=== PATIENT | male | born 1965 | race Caucasian/White ===

== ENCOUNTER 2019-06-13 20:52 | Inpatient (IN) ==
[2019-06-13] MEDS ORDERED: G.I. COCKTAIL PO ONE (22:35)
--- NOTE | 2019-06-14 00:47 | PROVIDER DOCUMENTATION ---
This chart was entered by Bridgette Mohan Scribe, acting as scribe for Judy Gillette MD. HPI-Abdominal Pain/GI Problem - General Source: patient - History of Present Illness-ABD Nature of Presenting Problems: 54 YOWM C/O EPIGASTRIC ABD PAIN FOR 1 YEAR BUT BECOMING WORSE, ACHING AND MORE CONSTANT SINCE TUESDAY. PT HAS HAD NAUSEA BUT NO VOMITING OR DIARRHEA. PT HAS REG BM'S EVERY 3 DAYS. NO MEDICAL HX, NO RX, NO PCP AND NO ALLERGIES. 03/01. PT HAS HAD POOR APPETITE. 1PPD, DENIES ALCOHOL BUT +METH USE. Abdominal Pain Onset Location: reports: epigastric Pain Radiation: reports: no radiation Quality of Pain: reports: aching Severity in ED: reports: mild Onset/Duration: reports: 3 days ago (WORSENING SINCE TUESDAY), other (1 YEAR) Timing: reports: still present, constant Activities at Onset: reports: none Modifying Factors: improves with: nothing Associated Symptoms: reports: denies symptoms Last BM: unsure Dark Stools Present?: reports: none noticed Rectal Bleeding: reports: none Rectal Pain: reports: none Emesis Description: reports: none <Judy Gillette - Last Filed: 06/14/19 00:48> <Pauline Delarosa - Last Filed: 06/14/19 04:43> - General Chief Complaint: Abdominal Pain Stated Complaint: ABD PAIN Time Seen by Provider: 06/13/19 21:30 Allergies/Adverse Reactions: Patient Allergies Allergy/AdvReac Type Severity Reaction Status Date / Time No Known Allergies Allergy Verified 06/14/19 00:41 Home Medications: Home Medication List Medication Instructions Recorded Confirmed Last Taken Type NK [No Home Medications] 06/14/19 06/14/19 Unknown History Review of Systems - Adult - REVIEW OF SYSTEMS - ADULT Constitutional: reports: no symptoms reported. denies: fever, fatique, night sweats Eyes: reports: no symptoms reported Ears, Nose, Mouth & Throat: reports: no symptoms reported Cardiovascular: reports: no symptoms reported Respiratory: reports: no symptoms reported Gastrointestinal: reports: see HPI, abdominal pain, nausea, poor appetite. denies: hematemesis, diarrhea, rectal bleeding, vomiting Genitourinary: reports: no symptoms reported Musculoskeletal: reports: no symptoms reported Integumentary: reports: no symptoms reported Neurological: reports: no symptoms reported Psychiatric: reports: no symptoms reported Endocrine: reports: no symptoms reported Hematologic/Lymphatic: reports: no symptoms reported Allergic/Immunologic: reports: no symptoms reported All Other Systems: Reviewed and Negative <MarimarDanny ottonora TemoSerina - Last Filed: 06/14/19 00:48> Past History - Adult - PAST MEDICAL HISTORY-ADULT Review of Records: reports: Nursing Assessment Review, Medications Reviewed, Social history reviewed & non-contributory. Major Childhood Illnesses: reports: denies history Cardiovascular: reports: denies history Respiratory: reports: denies history Gastrointestinal: reports: denies history Obstetrical/Gynecological: reports: denies history Genitourinary: reports: denies history Musculoskeletal: reports: denies history Neurological: reports: denies history Endocrine/Immune: reports: denies history Other Conditions: reports: denies history - PRIOR SURGERIES/PROCEDURES Surgical/Procedure History: reports: orthopedic (extremity) - IMMUNIZATION STATUS Childhood Immunizations: See Nurse Assessment Flu Vaccine: See Nurse Assessment - FAMILY HISTORY Family History: reviewed, not pertinent - SOCIAL HISTORY Smoking: cigarettes, greater than 1 pack/day Provider spent 3-5 mins advising pt. on dangers of tobacco.: Discussed manners to quit use, and f/u contacts for add'l counseling. Substance Use: denies (ALCOHOL USE), other (METH) <Danny Gillettenora TemoSerina - Last Filed: 06/14/19 00:48> Physical Exam-General - PHYSICAL EXAM-ADULT Initial Vital Signs Reviewed: Yes - CONSTITUTIONAL General Appearance: alert, no apparent distress. negative: lethargic, slow to respond, obtunded - EYES Eyes: PERRL/EOMI, pink conjunctivae - HEAD, EARS, NOSE, MOUTH & THROAT HENMT: normocephalic/atraumatic, moist mucous membranes, normal ENT inspection - NECK Neck: non-tender, full range of motion, supple, normal inspection - RESPIRATORY Respiratory: chest non-tender, lungs clear, normal breath sounds - CARDIOVASCULAR Cardiovascular: normal peripheral pulses, regular rate, rhythm - GASTROINTESTINAL (ABDOMEN) Abdominal Exam: normal bowel sounds, soft, no organomegaly, no pulsatile mass, tenderness (EPIGASTRUM TO PALP). negative: non tender, guarding, rigid, rebound - MUSCULOSKELETAL Back Exam: normal inspection Extremity: normal range of motion, non-tender, normal gait, normal inspection Peripheral Pulses: radial (L): 2+ - SKIN Integumentary: normal color, normal turgor, warm/dry, abrasion(s) (ON FACE VARIOUS SPOTS) - NEUROLOGIC Neurologic: grossly normal, no motor/sensory deficits - PSYCHIATRIC Psych/Mental Status: normal mood/affect, normal thought content, normal thought process, oriented x 3 <Judy Gillette - Last Filed: 06/14/19 00:48> Progress - PLAN OF CARE/RESULTS Progress/Plan/Lab Results: Vital Signs - 8 hr 06/13/19 20:56 Temperature 97.5 F L Pulse Rate 81 Respiratory Rate 16 Blood Pressure 110/78 O2 Sat by Pulse Oximetry 95 - CHANGE OF SHIFT REPORT (ED Provider) 1 Report Given and Care Transferred to:: Dr. Delarosa at the end of shift Time of Transfer: 00:48 Items Pending: Labs <Judy Gillette - Last Filed: 06/14/19 00:48> - PLAN OF CARE/RESULTS Progress/Plan/Lab Results: Vital Signs - 8 hr 06/13/19 20:56 Temperature 97.5 F L Pulse Rate 81 Respiratory Rate 16 Blood Pressure 110/78 O2 Sat by Pulse Oximetry 95 Laboratory Results - last 24 hr 06/14/19 06/14/19 06/14/19 00:55 00:55 00:55 WBC 9.49 RBC 5.36 Hgb 15.4 Hct 48.6 MCV 90.7 MCH 28.7 MCHC 31.7 L RDW Std Deviation 14.6 H Plt Count 288 MPV 10.9 H Immature Gran % (Auto) 0.2 Neut % (Auto) 76.6 H Lymph % (Auto) 13.4 L Taliaferro % (Auto) 7.9 Eos % (Auto) 1.7 Baso % (Auto) 0.2 Immature Gran # (Auto) 0.02 Neut # (Auto) 7.27 H Lymph # (Auto) 1.27 Taliaferro # (Auto) 0.75 H Eos # (Auto) 0.16 Baso # (Auto) 0.02 Sodium 140 Potassium 4.3 Chloride 101 Carbon Dioxide 26 Anion Gap 13 BUN 15 Creatinine 0.8 Estimated GFR/1.73 m2 > 60 BUN/Creatinine Ratio 19 Glucose 129 H Calculated Osmolality 282 Calcium 9.8 Total Bilirubin 1.22 H AST 250 H ALT 636 H Alkaline Phosphatase 324 H Creatine Kinase 68 Troponin T High Sens Total Protein 7.3 Albumin 4.3 Globulin 3.0 Albumin/Globulin Ratio 1.4 Amylase 603 H Lipase 1423 H Urine Source CLEAN CATCH Urine Color YELLOW Urine Turbidity CLEAR Urine pH 6.0 Ur Specific [place] 1.035 Urine Protein 30 A Ur Glucose (Stick) NEGATIVE Ur Ketones (Stick) NEGATIVE Urine Blood NEGATIVE Urine Nitrite NEGATIVE Urine Bilirubin SMALL A Urobilinogen Dipstick 4 A Urine Leukocytes NEGATIVE Urine WBC (Auto) <10 Urine RBC (Auto) 10-20 A U Epithel Cells (Auto) <10 Urine Bacteria (Auto) NEGATIVE Urine Crystals NONE SEEN Small Round Cells NONE SEEN Urine Casts NONE SEEN Urine Yeast-like Cells NONE SEEN Urine Opiates Screen Ur Oxycodone Screen Ur Methadone, Qual Ur Barbiturates Screen Ur Phencyclidine Scrn Ur Amphetamines Screen U Benzodiazepines Scrn Urine Cocaine Screen U Cannabinoids Screen 06/14/19 06/14/19 00:55 00:55 WBC RBC Hgb Hct MCV MCH MCHC RDW Std Deviation Plt Count MPV Immature Gran % (Auto) Neut % (Auto) Lymph % (Auto) Taliaferro % (Auto) Eos % (Auto) Baso % (Auto) Immature Gran # (Auto) Neut # (Auto) Lymph # (Auto) Taliaferro # (Auto) Eos # (Auto) Baso # (Auto) Sodium Potassium Chloride Carbon Dioxide Anion Gap BUN Creatinine Estimated GFR/1.73 m2 BUN/Creatinine Ratio Glucose Calculated Osmolality Calcium Total Bilirubin AST ALT Alkaline Phosphatase Creatine Kinase Troponin T High Sens 10 Total Protein Albumin Globulin Albumin/Globulin Ratio Amylase Lipase Urine Source Urine Color Urine Turbidity Urine pH Ur Specific [place] Urine Protein Ur Glucose (Stick) Ur Ketones (Stick) Urine Blood Urine Nitrite Urine Bilirubin Urobilinogen Dipstick Urine Leukocytes Urine WBC (Auto) Urine RBC (Auto) U Epithel Cells (Auto) Urine Bacteria (Auto) Urine Crystals Small Round Cells Urine Casts Urine Yeast-like Cells Urine Opiates Screen NONE DETECTED Ur Oxycodone Screen NONE DETECTED Ur Methadone, Qual NONE DETECTED Ur Barbiturates Screen NONE DETECTED Ur Phencyclidine Scrn NONE DETECTED Ur Amphetamines Screen PRESUMPTIVE POSITIVE A U Benzodiazepines Scrn NONE DETECTED Urine Cocaine Screen NONE DETECTED U Cannabinoids Screen PRESUMPTIVE POSITIVE A Orders Category Date Time Status Saline Loc DIRECTED Care 06/13/19 22:34 Active NPO Diet 06/13/19 22:[address] ABD/PELVIS W/IV CONT ONLY [CT] Stat Exams 06/14/19 02:43 Ordered AMYLASE [CHEM] Stat Lab 06/14/19 00:55 Completed CBC WITH ELECTRONIC DIFF [HEME] Stat Lab 06/14/19 00:55 Completed CK PROFILE [SP CHEM] Stat Lab 06/14/19 00:55 Completed COMPREHENSIVE METABOLIC PANEL [CHEM] Stat Lab 06/14/19 00:55 Completed LIPASE [CHEM] Stat Lab 06/14/19 00:55 Completed TROPONIN T HIGH SENSITIVITY Stat Lab 06/14/19 00:55 Completed URINALYSIS W/POSS RFLX CULT [URINALYSIS] Stat Lab 06/14/19 00:55 Completed URINE DRUG SCREEN Stat Lab 06/14/19 00:55 Completed URINE MANUAL MICROSCOPIC [URINALYSIS] Stat Lab 06/14/19 00:55 Completed Lactated Ringers Inj [Lr] 1,000 ml Med 06/14/19 04:45 Ordered IV 250 mls/hr Lactated Ringers Inj [Lr] 1,000 ml Med 06/14/19 04:36 Active IV 999 mls/hr Lido/Espinoza Alk/Al&mg Hydrox [G.i. Cocktail] Med 06/13/19 22:35 Discontinued 30 ml PO NOW ONE Morphine Med 06/14/19 03:00 Discontinued 4 mg IV NOW ONE EKG [EKG] Stat Ther 06/13/19 22:35 Ordered Transfer/Admit Order [TRANSFER] Routine Transfer 06/14/19 04:34 Ordered Patient signed out to me pending labs and final dispo. Patient with elevated lipase and transaminitis. Could be gallstone pancreatitis. Will require admission. Spoke to Dr Olivier, hospitlaist health education assistant who accepted patient for admission Further orders to be placed per their team. Result Diagrams: 06/14/19 00:55 06/14/19 00:55 - CONSULTS/PCP/HOSPITALIST Notification #1 *Consult/PCP/Hospitalist*: Dr Olivier Time Discussed: 04:25 Consult Disposition: Admit <Pauline Delarosa - Last Filed: 06/14/19 04:43> Departure <Judy Gillette - Last Filed: 06/14/19 00:48> - Departure Date of Disposition Decision: 06/14/19 Time of Disposition Decision: 04:13 Certified Medical Emergency: Emergent - Critical Care Note This patient required my direct & personal management of CC.: No <Pauline DelarosaSerina - Last Filed: 06/14/19 04:43> - Departure DIAGNOSIS: Pancreatitis, Transaminitis, Substance abuse, Abdominal pain Disposition: ADMITTED INPATIENT 09 Condition: Stable Referrals and Follow-Ups: None,PCP [Primary Care Provider] - Attestation - Physician/ JULIETH Attestation Patient care was provided by Advanced Practice Provider:: No The physician spent face to face time with patient:: Yes Advanced Practice Provider documentation review:: Supervising physician onsite and consulted in the evaluation and care of this patient. The physician did have a face to face encounter with the patient. <Judy Gillette - Last Filed: 06/14/19 00:48> This chart was documented by the indicated scribe, (Bridgette Mohan Scribe) and accurately reflects the services I performed and decisions made by me, Judy Gillette MD, as attested by the provider's signature.
[2019-06-14 01:44] LABS: URINE SOURCE CLEAN CATCH
[2019-06-14 01:57] LABS: BASO# 0.02 X1000 (0.0-0.2); BASO% 0.2 % (0.0-0.8); BILIRUBIN URINE SMALL (NEGATIVE); BLOOD URINE NEGATIVE (NEGATIVE); COLOR YELLOW; EOS# 0.16 X1000 (0.0-0.7); EOS% 1.7 % (0.0-10.0); GLUCOSE URINE NEGATIVE (NEGATIVE); HEMATOCRIT 48.6 % (42.0-52.0); HEMOGLOBIN 15.4 g/dL (14.0-18.0); IMM GRAN# 0.02 X1000 (0.0-0.04); IMM GRAN% 0.2 % (0.0-0.5); KETONE URINE NEGATIVE (NEGATIVE); LEUKOCYTES URINE NEGATIVE (NEGATIVE); LYMPH# 1.27 X1000 (1.2-3.4); LYMPH% 13.4 % (20.5-51.1); MCH 28.7 PG (27-31); MCHC 31.7 g/dL (33-37); MCV 90.7 FL (81-99); MONO# 0.75 X1000 (0.11-0.59); MONO% 7.9 % (1.7-9.3); MPV 10.9 FL (7.4-10.4); NEUT# 7.27 X1000 (1.4-6.5); NEUT% 76.6 % (42.2-75.2); NITRITE URINE NEGATIVE (NEGATIVE); PLT 288 X1000 (130-400); PROTEIN URINE 30 mg/dL (NEGATIVE); RBC 5.36 XMIL (4.7-6.1); RDW 14.6 % (11.5-14.5); SP GRAVITY URINE 1.035; TURBIDITY URINE CLEAR (CLEAR); UROBILINOGEN URINE 4 mg/dL (NORMAL); WBC 9.49 X1000 (4.8-10.8)
[2019-06-14 02:02] LABS: UR EPITHELIAL CELLS <10 /HPF (<10); URINE BACTERIA NEGATIVE /HPF; URINE WBC <10 /HPF (<10)
[2019-06-14 02:09] LABS: URINE CASTS NONE SEEN; URINE CRYSTALS NONE SEEN; URINE SMALL ROUND CELLS NONE SEEN; URINE YEAST NONE SEEN
[2019-06-14 02:15] LABS: ESTIMATED GFR > 60
[2019-06-14 02:21] LABS: AGAP 13; ALB/GLOB RATIO 1.4; ALBUMIN 4.3 g/dL (3.5-5.0); ALKALINE PHOSPHATASE 324 U/L (32-122); AMYLASE 603 U/L (20-200); BUN 15 mg/dL (8-22); CALCIUM 9.8 mg/dL (8.8-10.2); CHLORIDE 101 mmol/L (98-107); CK PROFILE 68 U/L (24-204); COSMO 282; CREATININE 0.8 mg/dL (0.7-1.2); GLUCOSE 129 mg/dL (70-104); GOT 250 U/L (10-34); GPT 636 U/L (10-44); POTASSIUM 4.3 mmol/L (3.5-5.1); SODIUM 140 mmol/L (136-145); TCO2 26 mmol/L (25-35); TOTAL BILIRUBIN 1.22 mg/dL (0.20-1.00); TOTAL PROTEIN 7.3 g/dL (6.3-8.3)
[2019-06-14 02:25] LABS: LIPASE 1423 U/L (13-60); UR AMPHETAMINES QUAL PRESUMPTIVE POSITIVE (NONE DETECT); UR BARBITUATES QUAL NONE DETECTED (NONE DETECT); UR BENZODIAZEPIN QUAL NONE DETECTED (NONE DETECT); UR CANNABINOIDS QUAL PRESUMPTIVE POSITIVE (NONE DETECT); UR COCAINE QUAL NONE DETECTED (NONE DETECT); UR METHADONE QUAL NONE DETECTED (NONE DETECT); UR OPIATES QUAL NONE DETECTED (NONE DETECT); UR OXYCODONE QUAL NONE DETECTED (NONE DETECT); UR PCP QUAL NONE DETECTED (NONE DETECT)
[2019-06-14] MEDS ORDERED: MORPHINE IV ONE (03:00)
[2019-06-14] MEDS ORDERED: LR 1,000 ML IV ONE (04:36)
[2019-06-14] MEDS ORDERED: ROCEPHIN 1 GM in NS 50 ML IV ONE (04:40)
--- NOTE | 2019-06-14 05:59 | EKG Report ---
Test Performed on : 06/14/2019 05:29:25 AM Test Reason : epigastric pain Blood Pressure : / mmHG Vent. Rate : 067 BPM Atrial Rate : 067 BPM P-R Int : 134 ms QRS Dur : 090 ms QT Int : 404 ms P-R-T Axes : 024 066 065 degrees QTc Int : 426 ms Normal sinus rhythm. Normal ECG No previous ECGs available Unconfirmed Result
--- NOTE | 2019-06-14 06:54 | Diag Imaging Result Doc PS360 ---
EXAM: CT ABD/PELVIS W/IV CONT ONLY HISTORY: pancreatitis, transaminitis TECHNIQUE: CT abdomen and pelvis with intravenous contrast, but without oral contrast COMPARISON: None. FINDINGS: The gallbladder is distended and contains several small stones and sludge. No focal hepatic abnormality. There are inflammatory changes about the pancreas. No pancreatic calcifications or pseudocyst. Normal adrenal glands and kidneys. Normal spleen. No hydronephrosis. Normal aorta. No bowel obstruction. No inflammation about the cecum. No abscess. No ascites. The urinary bladder is distended and normal. Prior orthopedic surgery with plates and screws in the right pelvis. Likely old compression fracture to the L3 vertebra. Normal prostate. IMPRESSION: 1.Acute pancreatitis 2.Cholelithiasis This exam was performed using automated exposure control, adjustment of mA or kV according to patient size, and/or use of iterative reconstruction technique. Electronically signed by Alexi Mclean 06/14/2019 6:51 AM
--- NOTE | 2019-06-14 07:01 | HISTORY AND PHYSICAL ---
PRIMARY CARE PROVIDER: None. CHIEF COMPLAINT: Epigastric pain. HISTORY OF PRESENT ILLNESS: Mr. Reagan is a 54-year-old, male, who carries a past medical history of meth, marijuana use, tobacco use and abuse, who reports he has had some abdominal pain on and off for the course of the year. However, Tuesday afternoon, it became worse in nature. He denied any nausea, vomiting, or diarrhea. He reports regular bowel movements every 3 days. He denies any past medical history, except for a fall over a year ago off of a 12-foot ladder, where he broke several bones, including his heels, his right ankle, his pelvis, and his back, for which he received multiple surgeries for. Workup in the ED revealed pancreatitis. We are currently awaiting the CT of his abdomen, and he will be admitted with GI consult. PAST MEDICAL HISTORY: Per HPI. PAST SURGICAL HISTORY: Bilateral heels, right ankle, pelvis, and back. FAMILY HISTORY: Father with cardiomegaly, , he said, after his fifth DC, alcoholism, and diabetes. ALLERGIES: No known drug allergies. HOME MEDICATIONS: None. except OTC NSAIDS (multiple) SOCIAL HISTORY: He has girlfriend at bedside. 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 He is a pack per day smoker. Denies any alcohol, but he states he uses marijuana and methamphetamines occasionally and every day, which his drug screen is positive for. PHYSICAL EXAMINATION: VITAL SIGNS: Temperature is 97.5 degrees, heart rate 81, respirations 16, blood pressure 110/78, O2 is 95% on room air. 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 However, he has agreed to stay for now. HEENT: Atraumatic, normocephalic. PERRL. NECK: Supple. Trachea midline. CARDIOVASCULAR: S1, S2 appreciated. No murmurs, gallops, rubs noted. RESPIRATORY: Lung sounds are clear bilaterally. GI: Soft. He is tender to the epigastric region as well as the right and left upper quadrant. Positive bowel sounds. LOWER EXTREMITIES: Negative for edema. NEUROLOGIC: No focal deficits noted. DIAGNOSTIC DATA: Currently pending CT of his abdomen and pelvis. LABORATORY DATA: White count 9, hemoglobin and hematocrit 15 and 48, platelet count is 288,000. Sodium 140, potassium 4.3, BUN 15, creatinine 0.8, blood glucose is 129. T bilirubin 1.22, AST 250, ALT 636, alkaline phosphatase 324. Amylase 603, lipase 1423. Urinalysis is negative for nitrates, negative for bacteria. Toxicology screen positive for amphetamines, positive for cannabinoids. ASSESSMENT AND PLAN: 1. Acute pancreatitis, possibly gallstone pancreatitis. We are currently awaiting imaging at this time. We will go ahead and aggressively intravenous hydrate him with lactated Ringer's. He has been given a dose of intravenous Rocephin. We will consult Dr. Romero with Gastroenterology, provide him with pain medication and antiemetics. 2. Tobacco use and abuse. Will need continued education. 3. Marijuana and amphetamine use. Will need continued daily cessation. Further recommendation to follow physician evaluation, laboratory and diagnostic data. Dictated by JABIER Rizo for Roberto Olivier MD cc: MD Yrn Sanderson MD [facility]
[2019-06-14] MEDS ORDERED: ZOFRAN IV PRN (08:20)
[2019-06-14] MEDS ORDERED: NICODERM PATCH TD PRN (08:20)
[2019-06-14] MEDS: LR 1,000 ML IV SCH ×3 (08:33→17:23)
--- NOTE | 2019-06-14 09:58 | Diag Imaging Result Doc PS360 ---
EXAM: US ABDOMEN-COMPLETE 06/14/2019 HISTORY: suspected gallstone pancreatitis TECHNIQUE: Abdominal ultrasound COMMENT: The aorta and inferior vena cava are normal in appearance. The head and body the pancreas are unremarkable. The liver is within normal limits. There is antegrade flow in the portal vein. There are numerous small stones and other sediment in the gallbladder dependently. There is no evidence of wall thickening or para cholecystic fluid and there is no sonographic Umana sign. The kidneys are without evidence of hydronephrosis or mass. The common bile duct measures less than 6 mm. The spleen is not enlarged. There are no abnormal fluid collections. IMPRESSION: Cholelithiasis. Electronically signed by Olvin Winston 06/14/2019 9:56 AM
--- NOTE | 2019-06-14 15:34 | GASTROENTEROLOGY CONSULTATION ---
DATE: 06/14/2019 REASON FOR CONSULT: Pancreatitis. HISTORY OF PRESENT ILLNESS: Mr. Reagan is a 54-year-old, male with a history of methamphetamine abuse, marijuana abuse and tobacco abuse presented to the hospital yesterday night with epigastric pain, and right and left upper quadrant pain. He rated his pain as 10/10 and described it as an uncomfortable, sharp, stabbing pain. The patient complained of having nausea but has denied any vomiting. He also noticed that his urine was dark in color. He mentioned having constipation problems. He has his bowel movements once every 3 days. He had noticed that his stools were dark and tarry. Patient has denied any other medical problems except having a fall November 2017, he fell off the ladder and broke his right ankle, both heels, right hip, pelvis, right wrist, right elbow, a few ribs. He was in the hospital for 14 days with multiple surgeries. The patient's abdomen and pelvis CT has shown acute pancreatitis and cholelithiasis. The patient's abdominal x-ray has shown cholelithiasis. His lipase and amylase on admission were 603 and 1423. PAST MEDICAL HISTORY: Denied having any medical problems. History of methamphetamine abuse, marijuana abuse, tobacco abuse, and a fall in 2017. PAST SURGICAL HISTORY: Right ankle surgery, both heel surgery, right hip surgery, pelvis surgery, right wrist surgery, right elbow surgery. ALLERGIES: No known drug allergies. HOME MEDICATIONS: The patient has denied taking any home medications. FAMILY HISTORY: His dad had heart disease and mom of pneumonia. SOCIAL HISTORY: The patient is single, has a girlfriend. He works at a construction company. Smokes 1 pack of cigarettes every day. He has denied drinking any alcohol but he uses marijuana and methamphetamines every day. REVIEW OF SYSTEMS: As per HPI. Otherwise, a 12-point review of systems is negative. PHYSICAL EXAMINATION: Vital Signs: Temperature 97.7 degrees, pulse 87, respirations 18, blood pressure 134/84, oxygen saturation is 92% on room air. The patient's weight is 183 pounds. BMI is 25.6 kg/m2. General: He is alert, oriented x3, and in no acute distress. HEENT: Pale conjunctivae. Mild icterus. PERRL. Neck: Supple. Lungs: Clear to auscultation. Cardiovascular: Regular rate and rhythm. Abdomen: Soft. Tender in the epigastric area, and in the right and left upper quadrants. Active bowel sounds heard in all 4 quadrants. Extremities: No clubbing, no cyanosis, no edema. Pedal pulses 2+ present bilaterally. Neurologic: Alert and oriented x3. Nonfocal. Cranial nerves 2-12 grossly intact. LABORATORY DATA: WBCs are 9.49, RBCs 5.36, hemoglobin 15.4, hematocrit 48.6, platelet count is 288,000. Sodium 140, potassium 4.3, chloride 101, carbon dioxide 26, anion gap 13, BUN 15, creatinine 0.8, glucose 129, calcium 9.8. Total bilirubin 1.22, AST 250, ALT 636, alkaline phosphatase 324, albumin 4.3, amylase 603, lipase 1423. Urinalysis has shown protein of 30, small amount of bilirubin. Toxicology report has shown presumptive positive for amphetamines and cannabinoids. IMAGING: Abdominal ultrasound has shown cholelithiasis. Abdomen and pelvis CT has shown acute pancreatitis and cholelithiasis. IMPRESSION AND PLAN: 1. Pancreatitis likely gallstone pancreatitis 2. Tobacco abuse. 3. Marijuana abuse. 4. Amphetamine abuse. 5. Gallstones PLAN: Mr. Reagan is a 54-year-old, male with a history of tobacco, marijuana, and amphetamine abuse. GI has been consulted for his pancreatitis. The patient's lipase and amylase yesterday were 603 and 1423. His liver enzymes are elevated. Total bilirubin is 1.22, AST 250, ALT 636, alkaline phosphatase is 324. The patient is currently receiving lactated Ringer's at 250 mL, a total of 3 bags. He will be also receiving normal saline at 125 mL. Continue patient on IV fluids, continue to monitor his lipase, amylase, liver enzymes and provide supportive care. Consult General surgery for evaluation for Cholecystectomy. Counseled to quit smoking and drug abuse. This plan was discussed with Dr. Romero. Thank you for your consult. Please call us for any further questions or concerns. Dictated by JABIER Davila for Yrn Romero MD cc: Yrn Romero MD I have seen and examined the patient myself and I agree with the above plan of care. Please call us with any further questions or concerns. [facility]
[2019-06-14] MEDS: NS 1,000 ML IV SCH ×2 (18:07→21:38)
[2019-06-15] MEDS: NS 1,000 ML IV SCH ×2 (02:57→12:17)
[2019-06-15] MEDS: DEMEROL IV PRN ×2 (07:01→22:17)
[2019-06-15 07:26] LABS: BASO# 0.02 X1000 (0.0-0.2); BASO% 0.3 % (0.0-0.8); EOS# 0.18 X1000 (0.0-0.7); EOS% 2.5 % (0.0-10.0); HEMATOCRIT 43.7 % (42.0-52.0); HEMOGLOBIN 13.8 g/dL (14.0-18.0); LYMPH# 1.17 X1000 (1.2-3.4); LYMPH% 16.3 % (20.5-51.1); MCH 28.4 PG (27-31); MCHC 31.6 g/dL (33-37); MCV 89.9 FL (81-99); MONO# 0.42 X1000 (0.11-0.59); MONO% 5.8 % (1.7-9.3); MPV 10.9 FL (7.4-10.4); NEUT# 5.39 X1000 (1.4-6.5); NEUT% 75.1 % (42.2-75.2); PLT 262 X1000 (130-400); RBC 4.86 XMIL (4.7-6.1); RDW 13.8 % (11.5-14.5); WBC 7.18 X1000 (4.8-10.8)
[2019-06-15 07:40] LABS: AGAP 12; ALB/GLOB RATIO 1.1; ALBUMIN 3.3 g/dL (3.5-5.0); ALKALINE PHOSPHATASE 228 U/L (32-122); BUN 9 mg/dL (8-22); CALCIUM 8.6 mg/dL (8.8-10.2); CHLORIDE 101 mmol/L (98-107); COSMO 272; CREATININE 0.7 mg/dL (0.7-1.2); ESTIMATED GFR > 60; GLUCOSE 82 mg/dL (70-104); GOT 61 U/L (10-34); GPT 296 U/L (10-44); PHOSPHORUS 3.2 mg/dL (2.7-4.5); POTASSIUM 4.1 mmol/L (3.5-5.1); SODIUM 137 mmol/L (136-145); TCO2 24 mmol/L (25-35); TOTAL BILIRUBIN 0.53 mg/dL (0.20-1.00); TOTAL PROTEIN 6.4 g/dL (6.3-8.3)
--- NOTE | 2019-06-15 11:55 | PROGRESS NOTE ---
DATE: 06/15/2019 SUBJECTIVE: The patient reports feeling fine. Not feeling nauseated. He actually requests some food. OBJECTIVE: Vital Signs: Temperature 98.3 degrees, heart rate 78, respiratory rate 16, blood pressure 129/70. O2 saturation 97% on room air. General: This is a 54-year-old male, lying in bed, in no acute distress. Cardiovascular: S1, S2 heard. No murmurs, gallops, or rubs. Regular rate and rhythm. Respiratory: Clear. Decreased breath sounds globally but no crackles or wheezing noted. Abdomen: Soft, mildly tender to palpation in the epigastric area but there is no signs of peritoneal irritation. Bowel sounds present. No organomegaly. Extremities: No clubbing, cyanosis, or edema. Peripheral pulses present in both legs. Neurological: Patient is alert and oriented x3. Moves 4 extremities. LABORATORY DATA: Normal white cell count. BMP revealed normal bilirubin with improving AST and ALT and alkaline phosphatase as well. ASSESSMENT AND PLAN: 1. Acute pancreatitis possible gallstone pancreatitis. Abdominal ultrasound confirmed that he has gallstones. Liver function tests revealed that bilirubin has normalized. There was improvement in transaminase and also alkaline phosphatase which is suspicious for any gallstone pancreatitis. Dr. Romero from GI has been consulted. They have recommended surgical consultation so we will proceed with that. 2. Tobacco use and abuse. Patient advised to stop smoking. 3. Marijuana and methamphetamine abuse. Patient has been advised to quit using drugs. cc: Ruslan Russ MD
--- NOTE | 2019-06-15 15:30 | GASTROENTEROLOGY PROGRESS NOTE ---
DATE: 06/15/2019 SUBJECTIVE: Mr. Reagan is a 54-year-old male resting in bed. Family was at the bedside. The patient has denied any nausea and vomiting today, but he did mention that he is having some left and right upper quadrant and epigastric pain. The patient has rated his pain as 7/10 and described it as a sharp pain. The patient is currently on a clear liquid diet and has denied having any bowel movements today. OBJECTIVE: Vital Signs: Temperature 98.3 degrees, pulse 78, respirations 16, blood pressure 129/78, oxygen saturation 97% on room air. The patient's weight is 183 pounds. BMI is 25.6 kg/m2. General: He is alert, oriented x3, and in no acute distress. HEENT: Pale conjunctivae. Mild icterus. PERRL. Neck: Supple. Lungs: Clear to auscultation. Cardiovascular: Regular rate and rhythm. Abdomen: Soft. Tender in the epigastric area, right and left upper quadrants. Active bowel sounds heard in all 4 quadrants. Extremities: No clubbing, no cyanosis, no edema. Pedal pulses 2+ present bilaterally. Neurologic: Alert and oriented x3. LABORATORY DATA: WBCs are 7.18, RBCs 4.86, hemoglobin 13.8, hematocrit is 43.7, platelet count is 262. Sodium is 137, potassium is 4.1, chloride is 101, carbon dioxide 24, anion gap 12. BUN 9, creatinine is 0.7, glucose 82, calcium 8.6, phosphorus 3.2. Total bilirubin is 0.5, AST 61, ALT 296, alkaline phosphatase is 228, albumin is 3.3. The patient's urinalysis yesterday showed urine protein of 30 and small amount of bilirubin. IMAGING: Abdominal ultrasound has shown cholelithiasis. An abdomen and pelvis CT has shown acute pancreatitis and cholelithiasis. IMPRESSION AND PLAN: Pancreatitis Gallstones Abdominal pain Nausea and vomiting Tobacco abuse Marijuana abuse Amphetamine abuse PLAN: Mr. Reagan is a 54-year-old male with a history of tobacco abuse, marijuana abuse and methamphetamine abuse. Gastroenterology is following him for his acute pancreatitis. The patient's abdominal ultrasound has shown cholelithiasis, and his abdomen and pelvis CT has shown acute pancreatitis and cholelithiasis. Surgery has been consulted and they will be doing a laparoscopic cholecystectomy. The patient is currently on IV fluids normal saline at 80 mL/hour, and he is on antiemetic Zofran 4 mg every 4 hours as needed. We will continue to monitor the patient and follow the plan of care per PCP and the surgeon. This plan was discussed with Dr. Renteria. Please call us for any further questions or concerns. Dictated by JABIER Davila for Patrick Renteria MD Physician Attestation I have seen and examined the patient. I have discussed and reviewed the note by Myesha EUGENE and agree with findings and plan as documented. In brief, Mr. Reagan is a 54 year old man with with history of polysubstance abuse who presented with uncomplicated gallstone pancreatitis, now resolving. He is tolerating diet with improving abdominal pain. LFTs are improving. Continue to trend LFTs until normalizes. I would recommend against trending lipase/amylase and follow clinically. Patient is going for cholecystectomy with Dr. Bailey on 06/16. Post-operative recommendations as per surgery. Will sign off. Please call with questions. Follow-up with GI in 4-6 weeks after discharge. NAMRATA
--- NOTE | 2019-06-15 18:29 | CONSULTATION ---
DATE OF CONSULTATION: 06/15/2019 Mr. Ean Reagan is a 54-year-old white male who presented to our emergency department with epigastric pain on 06/13/2019. In the vascular radiologist of 06/14/[address] scan of his abdomen and pelvis because of his pain which suggested pancreatitis and gallstones. An ultrasound confirmed his gallstones and we were asked to evaluate him for gallstone pancreatitis. 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 He has not had any previous abdominal surgery. He has a history of tobacco use and substance abuse. HOME MEDICATIONS: None. ALLERGIES: None. SOCIAL HISTORY: Works as a construction driver. His girlfriend is at the bedside. FAMILY HISTORY: Father of cardiomegaly. He has coronary artery disease in his family, alcoholism and diabetes. PHYSICAL EXAMINATION: General: Mr. Reagan is a middle-aged white male who is overweight. He is awake, cooperative in no acute distress. No jaundice. No oral lesions. No cervical or supraclavicular lymphadenopathy. His heart has regular rate. Lungs: Clear. There is no work of breathing. Abdomen: Protuberant but is not tightly distended. There might be mild tenderness in the epigastrium. No palpable mass. No costovertebral tenderness. Rectal exam was not performed. He does have palpable femoral pulses. No peripheral edema. Neurological: No focal deficit. LABORATORY DATA: His white blood cell count is normal, hematocrit is 44%. BUN and creatinine are 9 and 0.7. Liver function tests are elevated but improved from yesterday. On admission his amylase was 600, his lipase was 1400. IMPRESSION: Gallstone pancreatitis. PLAN: He has been given clear liquids. We will make him n.p.o. after midnight. We will check his amylase tomorrow and if it is trending towards normal, we will proceed with laparoscopic cholecystectomy. I have discussed the procedure in detail with him and his girlfriend at the bedside including risks of bleeding, infection, injury to the extrahepatic bile ducts requiring reoperation, conversion of laparoscopic to open cholecystectomy, bile leak requiring reoperation for drainage, and injury to intraabdominal contents with trocar placement. They understand the need for cholecystectomy and want to proceed. They also understand that if his pancreatitis is not improving that this operation will be delayed. cc: Marianne Bailey MD
[2019-06-16] MEDS: NS 1,000 ML IV SCH (02:36)
[2019-06-16] MEDS ORDERED: MARCAINE 0.25% PF ONE (07:24)
[2019-06-16] MEDS ORDERED: SODIUM CHLORIDE 0.9% ONE (07:24)
[2019-06-16] MEDS ORDERED: LR 1,000 ML ONE (07:24)
[2019-06-16] MEDS ORDERED: QUELICIN (DOSE) ONE (07:32)
[2019-06-16] MEDS ORDERED: XYLOCAINE-MPF 2% ONE (07:32)
[2019-06-16] MEDS ORDERED: DIPRIVAN 1% ONE ×2 (07:32→08:31)
[2019-06-16] MEDS ORDERED: ROBINUL ONE ×2 (07:32→08:32)
[2019-06-16 07:33] LABS: BASO# 0.05 X1000 (0.0-0.2); EOS# 0.19 X1000 (0.0-0.7); EOS% 3.7 % (0.0-10.0); HEMATOCRIT 44.6 % (42.0-52.0); HEMOGLOBIN 14.2 g/dL (14.0-18.0); IMM GRAN# 0.02 X1000 (0.0-0.04); IMM GRAN% 0.4 % (0.0-0.5); LYMPH# 1.62 X1000 (1.2-3.4); LYMPH% 31.3 % (20.5-51.1); MCH 28.7 PG (27-31); MCHC 31.8 g/dL (33-37); MCV 90.1 FL (81-99); MONO# 0.43 X1000 (0.11-0.59); MONO% 8.3 % (1.7-9.3); MPV 10.5 FL (7.4-10.4); NEUT# 2.86 X1000 (1.4-6.5); NEUT% 55.3 % (42.2-75.2); PLT 289 X1000 (130-400); RBC 4.95 XMIL (4.7-6.1); WBC 5.17 X1000 (4.8-10.8)
[2019-06-16] MEDS ORDERED: KEFZOL 2 GM/D5W 2 GM/50 ML IVPB IV ONE (07:36)
[2019-06-16] MEDS ORDERED: KEFZOL 1 GM/D5W 2 GM/100 ML IVPB ONE (07:38)
[2019-06-16 07:52] LABS: AGAP 10; ALB/GLOB RATIO 1.3; ALBUMIN 3.8 g/dL (3.5-5.0); ALKALINE PHOSPHATASE 224 U/L (32-122); BUN 6 mg/dL (8-22); CALCIUM 9.4 mg/dL (8.8-10.2); CHLORIDE 100 mmol/L (98-107); COSMO 275; CREATININE 0.7 mg/dL (0.7-1.2); ESTIMATED GFR > 60; GLUCOSE 101 mg/dL (70-104); GOT 40 U/L (10-34); GPT 227 U/L (10-44); POTASSIUM 4.2 mmol/L (3.5-5.1); SODIUM 139 mmol/L (136-145); TCO2 29 mmol/L (25-35); TOTAL BILIRUBIN 0.43 mg/dL (0.20-1.00); TOTAL PROTEIN 6.8 g/dL (6.3-8.3)
[2019-06-16] MEDS ORDERED: OFIRMEV 1000 MG/ISOTONIC SOLN 1,000 MG/100 ML BOTTLE ONE (07:59)
[2019-06-16] MEDS ORDERED: DECADRON ONE (07:59)
[2019-06-16] MEDS ORDERED: TORADOL ONE (07:59)
[2019-06-16] MEDS ORDERED: ZEMURON ONE (07:59)
[2019-06-16] MEDS ORDERED: ZOFRAN ONE (07:59)
[2019-06-16] MEDS ORDERED: NEOSTIGMINE ONE (08:32)
[2019-06-16] MEDS ORDERED: DILAUDID ONE (08:43)
--- NOTE | 2019-06-16 09:09 | Diag Imaging Result Doc PS360 ---
OPERATIVE CHOLANGIOGRAM - 06/16/2019 INDICATION: GB DISEASE TECHNIQUE: The exam was performed by the patient's surgeon. Two images were obtained. COMPARISON: 06/14/2019 FINDINGS: Contrast was infused into the cystic duct. This outlines a normal common bile duct. There is good passage of contrast into the duodenum. No strictures or filling defects. IMPRESSION: No complication. Electronically signed by Vahid Hayes 06/16/2019 9:06 AM
[2019-06-16] MEDS: DEMEROL IV PRN ×2 (13:07→22:19)
--- NOTE | 2019-06-16 14:41 | OPERATIVE NOTE ---
PROCEDURE DATE: 06/16/2019 PREOPERATIVE DIAGNOSES: 1. Chronic cholecystitis with cholelithiasis. 2. Acute pancreatitis. POSTOPERATIVE DIAGNOSES: 1. Chronic cholecystitis with cholelithiasis. 2. Acute pancreatitis. PRINCIPAL PROCEDURE: Laparoscopic cholecystectomy with intraoperative cholangiogram. SURGEON: Marianne Bailey MD. ANESTHESIA: General in addition to local anesthetic. ESTIMATED BLOOD LOSS: 30 mL. DRAINS: None. INDICATIONS: Ean Reagan is a 54-year-old white male who was admitted with gallstone pancreatitis. Studies of his gallbladder documented stones. His amylase and lipase quickly returned towards normal and it was felt that he needed cholecystectomy prior to his discharge. FINDINGS: The gallbladder was chronically inflamed and had small stones within it. The liver appeared to be normal. There was no evidence of saponification or ongoing inflammation around the pancreas. We felt we did the operation safely. We did do an intraoperative cholangiogram, which showed free flow of the dye into the duodenum without evidence of extrahepatic stones or obstruction. There was no abnormal dilatation of the extrahepatic bile ducts. No other intraabdominal pathology was noted. DESCRIPTION OF PROCEDURE: The patient was brought to the operating room, placed supine, received general anesthesia and was intubated. Abdomen was prepped and draped within a sterile field. We did not use a Baldwin catheter tube. We made a curvilinear incision below the umbilicus using a 15 blade scalpel. Veress needle was introduced through this incision into the abdomen. Pneumoperitoneum was established. Veress needle was removed. I placed a 11 mm trocar through this incision into the abdomen. The camera was placed through this port and the abdomen was explored for injury, there was none. Three other trocars were placed along the right costal margin under direct vision the camera. I placed a 11 mm trocar just to the right of the midline and two 5 mm trocars in our midclavicular and anterior axillary lines. Through our most lateral port, the gallbladder was grasped and retracted superiorly along with the right lobe of the liver. Another grasper was used to grab the body of the gallbladder and the triangle of Calot was bluntly dissected. We identified the cystic artery along its length. We placed a clip distally, 2 proximally. It was divided using hook scissors. The cystic duct was dissected along its length and we placed a clip at the cystic duct-gallbladder junction. We made a small incision in the cystic duct using hook scissors and a Taut intraoperative cholangiogram catheter was used to perform the cholangiogram with findings above. Once cholangiogram was completed, the catheter was removed and 2 clips were placed proximally on the cystic duct. I divided the cystic duct between clips using hook scissors. The spatula cautery was used to remove the gallbladder from the liver bed. There was no spillage of stones or bile during this procedure. I removed the gallbladder through our umbilical incision. I placed the trocar back through this incision and the area of operation was thoroughly inspected, irrigated, and the irrigation was removed with suction. There was no evidence of ongoing bleeding or bile leak. No drains were left. All trocars removed under direct vision the camera. The pneumoperitoneum was allowed to dissipate. I used [id number] 2-0 Vicryl stitches to reapproximate the fascia at the umbilicus and all skin was closed with 4-0 Monocryl subcuticular stitches. Dressings were applied. He tolerated the procedure well with plans for him to go the recovery room and then be readmitted to the floor. cc: Marianne Bailey MD
--- NOTE | 2019-06-16 15:39 | PROGRESS NOTE ---
DATE: 06/16/2019 INTERVAL HISTORY: Patient is status post laparoscopic cholecystectomy this morning. Doing fairly well postop. Complaining of some [id number] pain but has not yet asked for pain medicine. Discussed with patient that he has pain medicine available. He just has to ask for it. No other complaints. No acute events overnight. REVIEW OF SYSTEMS: Twelve point review of systems negative as per interval history. LABS: WBC 5.1, hemoglobin 14.2, hematocrit 44.6, platelets 289,000. Basic metabolic panel unremarkable. Bilirubin 0.43, AST 40, ALT 227, alkaline phosphatase 224. VITALS: T-max 98.4 degrees, pulse 76, respirations 16, blood pressure 124/74, O2 saturation 97% on room air. PHYSICAL EXAMINATION: General: No acute distress. Vitals: As above. HEENT: Normocephalic, atraumatic. Moist mucous membranes. Cardiovascular: Regular rate and rhythm. No murmurs noted. Pulmonary: Clear to auscultation bilaterally. No wheezing, rales, or rhonchi. Abdomen: Soft. Minimal tenderness around incisions in epigastric, but no rebound or guarding. Bowel sounds decreased but are present. Extremities: Peripheral pulses intact. No clubbing or cyanosis. Neurologic: Cranial nerves grossly intact. No focal deficits. Psychiatric: Normal mood and affect. Awake, alert, oriented x3. ASSESSMENT AND PLAN: 1. Acute pancreatitis, likely gallstone pancreatitis. Patient with elevated bilirubin, AST, ALT, and alkaline phosphatase on admission. Ultrasound showed stones in the gallbladder. Bilirubin came down so may have had a transiently obstructing stone, but they went ahead and took his gallbladder out this morning. The patient doing okay on liquids currently. Since they just did surgery this morning, we will likely wait till either this evening or in the morning to advance diet. Depending on how he does, may be able to go home late tomorrow or more likely Tuesday. 2. Tobacco use. Patient has been counseled on cessation. 3. Marijuana and methamphetamine use. Patient has been advised to quit illicit drugs.
[2019-06-16] MEDS: PERIDEX MT SCH (22:19)
[2019-06-17 06:53] LABS: BASO# 0.01 X1000 (0.0-0.2); BASO% 0.1 % (0.0-0.8); EOS# 0.01 X1000 (0.0-0.7); EOS% 0.1 % (0.0-10.0); HEMOGLOBIN 12.8 g/dL (14.0-18.0); LYMPH# 1.97 X1000 (1.2-3.4); LYMPH% 19.3 % (20.5-51.1); MCH 28.6 PG (27-31); MCHC 31.2 g/dL (33-37); MCV 91.5 FL (81-99); MONO# 0.79 X1000 (0.11-0.59); MONO% 7.8 % (1.7-9.3); MPV 10.7 FL (7.4-10.4); NEUT# 7.41 X1000 (1.4-6.5); NEUT% 72.7 % (42.2-75.2); PLT 238 X1000 (130-400); RBC 4.48 XMIL (4.7-6.1); WBC 10.19 X1000 (4.8-10.8)
[2019-06-17 07:26] LABS: AGAP 9; ALB/GLOB RATIO 1.1; ALBUMIN 3.3 g/dL (3.5-5.0); ALKALINE PHOSPHATASE 179 U/L (32-122); BUN 5 mg/dL (8-22); CALCIUM 8.8 mg/dL (8.8-10.2); CHLORIDE 102 mmol/L (98-107); COSMO 275; CREATININE 0.7 mg/dL (0.7-1.2); ESTIMATED GFR > 60; GLUCOSE 101 mg/dL (70-104); GOT 45 U/L (10-34); GPT 168 U/L (10-44); PHOSPHORUS 3.3 mg/dL (2.7-4.5); POTASSIUM 4.2 mmol/L (3.5-5.1); SODIUM 139 mmol/L (136-145); TCO2 28 mmol/L (25-35); TOTAL BILIRUBIN 0.23 mg/dL (0.20-1.00); TOTAL PROTEIN 6.2 g/dL (6.3-8.3)
[2019-06-17] MEDS: PERIDEX MT SCH ×2 (07:37→12:16)
[2019-06-17] MEDS: DEMEROL IV PRN ×2 (07:37→12:17)
--- NOTE | 2019-06-17 10:03 | PROGRESS NOTE ---
DATE: 06/17/2019 SUBJECTIVE: Mr. Reagan underwent a laparoscopic cholecystectomy with intraoperative cholangiogram yesterday for gallstone pancreatitis. It appears that his pancreatitis is resolving and a cholangiogram at the time of surgery showed no stones in the common duct. We felt that the surgery went well. This morning, he seems to be feeling well. All trocar sites were dressed and healing well. He is tolerating liquids. OBJECTIVE: His heart rate is 65, blood pressure 132/81, O2 saturation 92%. He is afebrile. His white blood cell count is normal, hematocrit is 41%. Electrolytes are within normal limits and his liver function tests are improving. PLAN: We will advance his diet. I think it is safe to discharge him home with followup in my outpatient offices in 7 to 10 days for followup. cc: Marianne Bailey MD
[2019-06-17 11:37] VITALS: BP 147/81
[2019-06-17] MEDS: NS 1,000 ML IV SCH ×2 (16:15→16:16)
--- NOTE | 2019-06-19 06:52 | DISCHARGE SUMMARY ---
ADMISSION DATE: 06/14/2019 DISCHARGE DATE: 06/17/2019 CONSULTS: GI, Dr. Renteria. Surgery, Dr. Bailey. DISCHARGE DIAGNOSES: 1. Acute pancreatitis, likely gallstone pancreatitis. 2. Tobacco use. 3. Marijuana use. 4. Methamphetamine use. 5. Nausea, vomiting, abdominal pain. HOSPITAL COURSE: The patient presented with abdominal pain which he had been having on and off for approximately a year with acute worsening that day. Was not actually having nausea or vomiting. Initial workup with CT abdomen and pelvis with distended gallbladder with stones and sludge as well as inflammatory changes around the pancreas. Bilirubin was mildly elevated at 1.22. Liver LFTs were elevated with AST 250, ALT 636, alkaline phosphatase 324, lipase 1300, amylase 600. UDS was positive for amphetamines and cannabinoids. Patient was thought to have acute and possibly chronic pancreatitis and likely cholecystitis. GI was involved, who recommended Surgery evaluation for cholecystectomy. Symptomatic treatment with pain medication and fluids was continued. Surgery evaluated the patient and did perform a laparoscopic cholecystectomy with cholangiogram on 06/16. After that, patient's symptoms improved rapidly. Diet was advanced and he was transitioned to oral pain medicine successfully. He was eating and drinking well at the time of discharge. Instructed to follow up with PCP and General Surgery. DISCHARGE VITALS: Are temperature 98.4 degrees, pulse 72, respirations 16, blood pressure 147/81, O2 saturation 96% on room air. DISCHARGE MEDICATIONS: 1. Nicotine patch 20 mg daily. 2. [place] 7.5/325 p.o. every 6 hours as needed, dispense 10 tabs. FOLLOW-UP AND PLAN: The patient discharging home to follow up with PCP and General Surgery. Patient strongly counseled on avoidance of illicit substances and tobacco.
== END 2019-06-17 16:01 | disposition home or self-care (01) | DRG 419 ==
LOC: ED 20:52 → SUATTDRO 06-14 05:42 → EDIPHOLD 06-14 05:42 → 4N 06-14 07:13
PROVIDERS: ATTEND Internal Medicine